=== PATIENT | female | born 1985 | race American Indian/Alaskan Native ===

== ENCOUNTER 2019-01-17 16:57 | Emergency (ER) | payer MEDICAID ==
[2019-01-17 17:04] VITALS: BP 137/98
--- NOTE | 2019-01-17 17:16 | Event Note ---
ED Screening Note Date of service: 01/17/19 Time: 17:14 ED Screening Note: 33 y o f presents with throat pain denies fever, chill,n.v This initial assessment/diagnostic orders/clinical plan/treatment(s) is/are subject to change based on patients health status, clinical progression and re-assessment by fellow clinical providers in the ED. Further treatment and workup at subsequent clinical providers discretion. Patient/guardian urged not to elope from the ED as their condition may be serious if not clinically assessed and managed. Initial orders include:
--- NOTE | 2019-01-17 19:27 | Emergency Department Report ---
ED General Adult HPI - General Chief complaint: Sore Throat Stated complaint: SORE THROAT Time Seen by Provider: 01/17/19 17:14 Source: patient Mode of arrival: Ambulatory Limitations: No Limitations - History of Present Illness Initial comments: The patient presents to the emergency department with a chief complaint of a sore throat 2 days and loss of voice. Patient also complains of returning [place] pain on the right side. Patient denies fever but does endorse contacts. Patient denies chest pain, shortness breath, or headache. -: Sudden Severity scale (0 -10): 5 Quality: aching Consistency: constant Improves with: none Worsens with: none Associated Symptoms: denies other symptoms Treatments Prior to Arrival: none - Related Data Previous Rx's Medication Instructions Recorded Last Taken Type Acetaminophen/Codeine [Tylenol 1 tab PO Q6H PRN #15 tab 01/17/19 Unknown Rx /Codeine # 3 tab] Naproxen [Naprosyn] 500 mg PO BID PRN #20 tablet 01/17/19 Unknown Rx Ondansetron [Zofran Odt] 4 mg PO Q4HR PRN #20 tab.rapdis 01/17/19 Unknown Rx cephALEXin [Keflex] 500 mg PO Q6HR #40 capsule 01/17/19 Unknown Rx predniSONE [Deltasone] 20 mg PO DAILY #15 tablet 01/17/19 Unknown Rx Allergies Allergy/AdvReac Type Severity Reaction Status Date / Time No Known Allergies Allergy Unverified 06/06/16 17:42 ED Review of Systems ROS: Stated complaint: SORE THROAT Other details as noted in HPI Comment: All other systems reviewed and negative Constitutional: denies: chills, fever Eyes: denies: eye pain, eye discharge, vision change ENT: denies: ear pain, throat pain Respiratory: denies: cough, shortness of breath, wheezing Cardiovascular: denies: chest pain, palpitations Endocrine: no symptoms reported Gastrointestinal: denies: abdominal pain, nausea, diarrhea Genitourinary: denies: urgency, dysuria, discharge Musculoskeletal: denies: back pain, joint swelling, arthralgia Skin: denies: rash, lesions Neurological: denies: headache, weakness, paresthesias Psychiatric: denies: anxiety, depression Hematological/Lymphatic: denies: easy bleeding, easy bruising ED Past Medical Hx - Past Medical History Hx Hypertension: No Hx Diabetes: No Hx Deep Vein Thrombosis: No Hx Renal Disease: No Hx Sickle Cell Disease: No Hx Seizures: No Hx Asthma: No Hx HIV: No - Social History Smoking Status: Never Smoker - Medications Home Medications: Home Medications Medication Instructions Recorded Confirmed Last Taken Type Acetaminophen/Codeine [Tylenol 1 tab PO Q6H PRN #15 tab 01/17/19 Unknown Rx /Codeine # 3 tab] Naproxen [Naprosyn] 500 mg PO BID PRN #20 tablet 01/17/19 Unknown Rx Ondansetron [Zofran Odt] 4 mg PO Q4HR PRN #20 tab.rapdis 01/17/19 Unknown Rx cephALEXin [Keflex] 500 mg PO Q6HR #40 capsule 01/17/19 Unknown Rx predniSONE [Deltasone] 20 mg PO DAILY #15 tablet 01/17/19 Unknown Rx ED Physical Exam - General Limitations: No Limitations General appearance: alert, in no apparent distress - Head Head exam: Present: atraumatic, normocephalic - Eye Eye exam: Present: normal appearance - ENT ENT exam: Present: mucous membranes moist, other (palatine tonsils inflamed with surrounding erythema and exudate) - Neck Neck exam: Present: normal inspection - Respiratory Respiratory exam: Present: normal lung sounds bilaterally. Absent: respiratory distress - Cardiovascular Cardiovascular Exam: Present: regular rate, normal rhythm. Absent: systolic murmur, diastolic murmur, rubs, gallop - GI/Abdominal GI/Abdominal exam: Present: soft, normal bowel sounds. Absent: distended, tenderness - Extremities Exam Extremities exam: Present: normal inspection - Back Exam Back exam: Present: normal inspection - Neurological Exam Neurological exam: Present: alert, oriented X3, CN II-XII intact. Absent: motor sensory deficit - Psychiatric Psychiatric exam: Present: normal affect, normal mood - Skin Skin exam: Present: warm, dry, intact, normal color. Absent: rash ED Course Vital Signs 01/17/19 17:02 Temperature 98.8 F Pulse Rate 98 H Respiratory 18 Rate Blood Pressure 137/98 [Left] O2 Sat by Pulse 100 Oximetry ED Medical Decision Making - Medical Decision Making Plan of care discussed with patient Critical care attestation.: If time is entered above; I have spent that time in minutes in the direct care of this critically ill patient, excluding procedure time. ED Disposition Clinical Impression: Pharyngitis, Sciatica Disposition: DC- TO HOME OR SELFCARE Is pt being admited?: No Does the pt Need Aspirin: No Condition: Stable Instructions: Pharyngitis (ED) Additional Instructions: return if worse Prescriptions: predniSONE [Deltasone] 20 mg PO DAILY #15 tablet cephALEXin [Keflex] 500 mg PO Q6HR #40 capsule Naproxen [Naprosyn] 500 mg PO BID PRN #20 tablet PRN Reason: pain Acetaminophen/Codeine [Tylenol /Codeine # 3 tab] 1 tab PO Q6H PRN #15 tab PRN Reason: pain Ondansetron [Zofran Odt] 4 mg PO Q4HR PRN #20 tab.rapdis PRN Reason: Nausea Referrals: [facility] [Provider Group] - 3-5 Days [facility] [Provider Group] - 3-5 Days Forms: Work/School Release Form(ED) Time of Disposition: 19:24
== END 2019-01-17 19:35 | disposition home or self-care (01) ==
LOC: ED 16:57
DX: J02.9 Acute pharyngitis, unspecified (principal); M54.31 Sciatica, right side; Z79.899 Other long term (current) drug therapy
CPT/HCPCS: 99282

== ENCOUNTER 2019-06-18 09:43 | Emergency (ER) | payer MEDICAID ==
[2019-06-18 11:44] LABS: Basophils % (Auto) 0.4 % (0.0-1.8); Eosinophils # (Auto) 0.1 K/mm3 (0.0-0.4); Hematocrit 37.5 % (30.3-42.9); Hemoglobin 12.3 gm/dl (10.1-14.3); Lymphocytes # (Auto) 2.3 K/mm3 (1.2-5.4); Lymphocytes % (Auto) 25.6 % (13.4-35.0); Mean Corpuscular HGB Conc 33 % (30-34); Mean Corpuscular Volume 80 fl (79-97); Monocytes # (Auto) 0.7 K/mm3 (0.0-0.8); Platelet Count 253 K/mm3 (140-440); Red Blood Count 4.68 M/mm3 (3.65-5.03); Red Cell Distribution Width 14.9 % (13.2-15.2)
[2019-06-18] MEDS ORDERED: SODIUM CHLORIDE 0.9% 1000 ML 1,000 ML IV ONE (11:44)
[2019-06-18] MEDS ORDERED: ONDANSETRON 4 MG/2 ML INJ IV ONE (11:44)
[2019-06-18 12:01] LABS: Alanine Aminotransferase 25 units/L (7-56); Albumin 4.1 g/dL (3.9-5); BUN/Creatinine Ratio 14; Blood Urea Nitrogen 10 mg/dL (7-17); Calcium 9.5 mg/dL (8.4-10.2); Hemolysis Index 5
--- NOTE | 2019-06-18 12:17 | Emergency Department Report ---
ED N/V/D HPI - General Chief complaint: Nausea/Vomiting/Diarrhea Stated complaint: COLD Time Seen by Provider: 06/18/19 10:30 Source: patient Mode of arrival: Ambulatory Limitations: No Limitations - History of Present Illness Initial comments: This is a 33-year-old female nontoxic, well nourished in appearance, no acute signs of distress presents to the ED with c/o of diarrhea, nausea and vomiting 3 days. Patient describes vomiting as food content. Patient denies any abdominal pain, chest pain, short of breath, fever, chills, headache, stiff ne ck, numbness or tingling. Patient denies any constipation. Denies any blood in stool. Patient denies any recent travels. Patient denies any drug allergies significant past medical history. MD complaint: nausea, vomiting, diarrhea -: days(s) Description of Vomiting: food contents Associated Abdominal Pain: No Radiation: none Pain Scale: 0 Improves with: none Worsens with: none Associated Symptoms: nausea/vomiting. denies: myalgias, chest pain, cough, diaphoresis, fever/chills, headaches, loss of appetite, malaise, rash, dysuria, shortness of breath, syncope, weakness - Related Data Previous Rx's Medication Instructions Recorded Last Taken Type Acetaminophen/Codeine [Tylenol 1 tab PO Q6H PRN #15 tab 01/17/19 Unknown Rx /Codeine # 3 tab] Naproxen [Naprosyn] 500 mg PO BID PRN #20 tablet 01/17/19 Unknown Rx Ondansetron [Zofran Odt] 4 mg PO Q4HR PRN #20 tab.rapdis 01/17/19 Unknown Rx cephALEXin [Keflex] 500 mg PO Q6HR #40 capsule 01/17/19 Unknown Rx predniSONE [Deltasone] 20 mg PO DAILY #15 tablet 01/17/19 Unknown Rx Ondansetron [Zofran Odt] 4 mg PO Q8HR PRN #12 tab.rapdis 06/18/19 Unknown Rx Allergies Allergy/AdvReac Type Severity Reaction Status Date / Time No Known Allergies Allergy Unverified 06/06/16 17:42 ED Review of Systems ROS: Stated complaint: COLD Other details as noted in HPI Constitutional: denies: chills, fever Eyes: denies: eye pain, eye discharge, vision change ENT: denies: ear pain, throat pain Respiratory: denies: cough, shortness of breath, wheezing Cardiovascular: denies: chest pain, palpitations Endocrine: no symptoms reported Gastrointestinal: nausea, vomiting, diarrhea. denies: abdominal pain, constipation, hematemesis, melena, hematochezia Genitourinary: denies: urgency, dysuria, discharge Musculoskeletal: denies: back pain, joint swelling, arthralgia Skin: denies: rash, lesions Neurological: denies: headache, weakness, paresthesias Psychiatric: denies: anxiety, depression Hematological/Lymphatic: denies: easy bleeding, easy bruising ED Past Medical Hx - Past Medical History Previous Medical History?: No Hx Hypertension: No Hx Diabetes: No Hx Deep Vein Thrombosis: No Hx Renal Disease: No Hx Sickle Cell Disease: No Hx Seizures: No Hx Asthma: No Hx HIV: No - Surgical History Past Surgical History?: No - Social History Smoking Status: Never Smoker Substance Use Type: None - Medications Home Medications: Home Medications Medication Instructions Recorded Confirmed Last Taken Type Acetaminophen/Codeine [Tylenol 1 tab PO Q6H PRN #15 tab 01/17/19 Unknown Rx /Codeine # 3 tab] Naproxen [Naprosyn] 500 mg PO BID PRN #20 tablet 01/17/19 Unknown Rx Ondansetron [Zofran Odt] 4 mg PO Q4HR PRN #20 tab.rapdis 01/17/19 Unknown Rx cephALEXin [Keflex] 500 mg PO Q6HR #40 capsule 01/17/19 Unknown Rx predniSONE [Deltasone] 20 mg PO DAILY #15 tablet 01/17/19 Unknown Rx Ondansetron [Zofran Odt] 4 mg PO Q8HR PRN #12 tab.rapdis 06/18/19 Unknown Rx ED Physical Exam - General Limitations: No Limitations General appearance: alert, in no apparent distress - Head Head exam: Present: atraumatic, normocephalic - Eye Eye exam: Present: normal appearance - Neck Neck exam: Present: normal inspection, full ROM. Absent: tenderness, meningismus, lymphadenopathy - Respiratory Respiratory exam: Present: normal lung sounds bilaterally. Absent: respiratory distress, wheezes, rales, rhonchi, stridor, chest wall tenderness, accessory muscle use, decreased breath sounds, prolonged expiratory - Cardiovascular Cardiovascular Exam: Present: regular rate, normal rhythm, normal heart sounds. Absent: bradycardia, tachycardia, irregular rhythm, systolic murmur, diastolic murmur, rubs, gallop - GI/Abdominal GI/Abdominal exam: Present: soft, normal bowel sounds. Absent: distended, tenderness, guarding, rebound, rigid, diminished bowel sounds - Extremities Exam Extremities exam: Present: normal inspection, full ROM - Back Exam Back exam: Present: normal inspection, full ROM. Absent: tenderness, CVA tenderness (R), CVA tenderness (L), muscle spasm, paraspinal tenderness, vertebral tenderness, rash noted - Neurological Exam Neurological exam: Present: alert, oriented X3, normal gait - Psychiatric Psychiatric exam: Present: normal affect, normal mood - Skin Skin exam: Present: warm, dry, intact, normal color. Absent: rash ED Course Vital Signs 06/18/19 06/18/19 09:48 12:27 Temperature 122.0 F H 98.0 F Pulse Rate 89 Respiratory 18 Rate Blood Pressure 129/85 O2 Sat by Pulse 100 Oximetry - Reevaluation(s) Reevaluation #1: 06/18/19 12:17 Patient is speaking in full sentences with no signs of distress noted. ED Medical Decision Making - Lab Data Result diagrams: 06/18/19 11:10 06/18/19 11:10 - Medical Decision Making This is a 33-year-old female that presents with nausea and vomiting. Patient is stable and was examined by me. There is no abdominal tenderness. Negative signs of symptoms of appendicitis, cholecystitis or acute abdomen. Labs obtained. UA obtained. Xr abdomen/chest xray obtained and dictated by the radiologist. Patient is notified of the report with no questions noted by the patient. Vital signs are stable prior to discharge. Patient received Zofran and 1L Normal saline in the ED which patient stated symptoms has resovled and subsided. A by mouth challenge has been obtained and patient tolerated well with no nausea vomiting. Patient was also instructed to Follow-up with a primary care doctor in 3-5 days or if symptoms worsen and continue return to emergency room as soon as possible. At time of discharge, the patient does not seem toxic or ill in appearance. No acute signs of distress noted. Patient agrees to discharge treatment plan of care. No further questions noted by the patient. Critical care attestation.: If time is entered above; I have spent that time in minutes in the direct care of this critically ill patient, excluding procedure time. ED Disposition Clinical Impression: Nausea vomiting and diarrhea Disposition: DC-01 TO HOME OR SELFCARE Is pt being admited?: No Does the pt Need Aspirin: No Condition: Stable Instructions: Acute Nausea and Vomiting (ED) Additional Instructions: Follow-up with a primary care doctor in 3-5 days or if symptoms worsen and continue return to emergency room as soon as possible. Prescriptions: Ondansetron [Zofran Odt] 4 mg PO Q8HR PRN #12 tab.rapdis PRN Reason: Nausea Referrals: PRIMARY CAREMD [Primary Care Provider] - 3-5 Days CECY FIORE MD [Staff Physician] - 3-5 Days [facility] [Outside] - 3-5 Days Forms: Work/School Release Form(ED)
[2019-06-18] MEDS ORDERED: ONDANSETRON 4 MG/2 ML INJ ONE (12:18)
[2019-06-18] MEDS ORDERED: SODIUM CHLORIDE 0.9% 1000 ML 1,000 ML ONE (12:19)
--- NOTE | 2019-06-18 13:55 | XRay Report ---
ABDOMEN 4 VIEW(S) INDICATION / CLINICAL INFORMATION: n/v. COMPARISON: None available. FINDINGS: TUBES / LINES: None. BOWEL GAS PATTERN: No significant abnormality. FREE AIR / EXTRALUMINAL GAS: None seen. ADDITIONAL FINDINGS: Clear lungs with normal heart size. IMPRESSION: 1. No significant abnormality. Signer Name: Pedro Rivera MD Signed: 06/18/2019 1:51 PM Workstation Name: [id number]
[2019-06-18 14:27] LABS: Bilirubin,Urine NEG (Negative); Blood,Urine LG (Negative); Color,Urine Yellow (Yellow); Mucus,Urine 1+ /HPF; Urobilinogen,Urine < 2.0 mg/dL (<2.0)
[2019-06-18 15:16] VITALS: BP 145/91
== END 2019-06-18 15:15 | disposition home or self-care (01) ==
LOC: ED 09:43
DX: R11.2 Nausea with vomiting, unspecified (principal); R19.7 Diarrhea, unspecified; J00 Acute nasopharyngitis [common cold]; Z79.899 Other long term (current) drug therapy
CPT/HCPCS: 36415; 74022; 80053; 81001; 83690; 84703; 85025; 87086; 96361; 96374; 99284; J2405; J7030

== ENCOUNTER 2019-07-22 02:00 | Emergency (ER) | payer MEDICAID ==
[2019-07-22] MEDS ORDERED: AMOXICILLIN/K CLAV 875/125MG TAB PO ONE (02:48)
[2019-07-22] MEDS ORDERED: dexAMETHasone 20 MG/5 ML VIAL IM ONE (02:48)
[2019-07-22] MEDS ORDERED: LIDOCAINE VISCOUS 2% 15 ML ORAL LIQD PO ONE (02:48)
[2019-07-22] MEDS ORDERED: KETOROLAC 30 MG/1 ML INJ IM ONE (02:48)
--- NOTE | 2019-07-22 03:17 | Emergency Department Report ---
ED General Adult HPI - General Chief complaint: Sore Throat Stated complaint: SORE THROAT Source: patient Mode of arrival: Ambulatory Limitations: No Limitations - History of Present Illness Initial comments: Patient is a 34-year-old -[place]yp[place] female with no past medical history who presents to the ED with complaint of acute onset persistent severe sore throat with dysphagia and right-sided anterior neck pain for the last 2 days. Patient states that swallowing any food makes the pain worse. Patient states that in the last 12 hours the swelling and the pain have worsened. Patient denies fever, chills, nausea, vomiting, diarrhea, dizziness, syncope, headache, nasal and sinus congestion, chest pain or shortness of breath, cough or abdominal pain. Patient states that she has been taking [id number] medication with no relief. Patient also states that there is no one else at home with similar symptoms. MD Complaint: Sore throat; neck pain -: Sudden, days(s) (2) Location: mouth Radiation: non-radiation Severity scale (0 -10): 6 Quality: aching, sharp Consistency: constant Improves with: none Worsens with: eating Associated Symptoms: denies other symptoms, loss of appetite. denies: confusion, chest pain, cough, diaphoresis, fever/chills, headaches, malaise, nausea/vomiting, rash, seizure, shortness of breath, syncope, other Treatments Prior to Arrival: none - Related Data Previous Rx's Medication Instructions Recorded Last Taken Type Acetaminophen/Codeine [Tylenol 1 tab PO Q6H PRN #15 tab 01/17/19 Unknown Rx /Codeine # 3 tab] Naproxen [Naprosyn] 500 mg PO BID PRN #20 tablet 01/17/19 Unknown Rx Ondansetron [Zofran Odt] 4 mg PO Q4HR PRN #20 tab.rapdis 01/17/19 Unknown Rx cephALEXin [Keflex] 500 mg PO Q6HR #40 capsule 01/17/19 Unknown Rx predniSONE [Deltasone] 20 mg PO DAILY #15 tablet 01/17/19 Unknown Rx Ondansetron [Zofran Odt] 4 mg PO Q8HR PRN #12 tab.rapdis 06/18/19 Unknown Rx Ibuprofen [Motrin] 600 mg PO Q8H PRN #30 tablet 07/22/19 Unknown Rx Lidocaine Viscous 2% 10 ml PO Q6H PRN #120 ml 07/22/19 Unknown Rx Penicillin V Potassium 500 mg PO Q6H #40 tablet 07/22/19 Unknown Rx Prednisone [predniSONE 10 mg 10 mg PO .TAPER #21 tab.ds.pk 07/22/19 Unknown Rx (6-Day Pack, 21 Tabs)] Allergies Allergy/AdvReac Type Severity Reaction Status Date / Time No Known Allergies Allergy Unverified 06/06/16 17:42 ED Review of Systems ROS: Stated complaint: SORE THROAT Other details as noted in HPI Constitutional: denies: chills, fever Eyes: denies: eye pain, eye discharge, vision change ENT: throat pain (right sided ), other (Swollen painful anterior cervical lymph nodes). denies: ear pain Respiratory: denies: cough, shortness of breath, wheezing Cardiovascular: denies: chest pain, palpitations Endocrine: no symptoms reported Gastrointestinal: denies: abdominal pain, nausea, diarrhea Genitourinary: denies: urgency, dysuria, discharge Musculoskeletal: denies: back pain, joint swelling, arthralgia Skin: denies: rash, lesions Neurological: denies: headache, weakness, paresthesias Psychiatric: denies: anxiety, depression Hematological/Lymphatic: denies: easy bleeding, easy bruising ED Past Medical Hx - Past Medical History Previous Medical History?: No Hx Hypertension: No Hx Diabetes: No Hx Deep Vein Thrombosis: No Hx Renal Disease: No Hx Sickle Cell Disease: No Hx Seizures: No Hx Asthma: No Hx HIV: No - Surgical History Past Surgical History?: No - Social History Smoking Status: Never Smoker Substance Use Type: None - Medications Home Medications: Home Medications Medication Instructions Recorded Confirmed Last Taken Type Acetaminophen/Codeine [Tylenol 1 tab PO Q6H PRN #15 tab 01/17/19 Unknown Rx /Codeine # 3 tab] Naproxen [Naprosyn] 500 mg PO BID PRN #20 tablet 01/17/19 Unknown Rx Ondansetron [Zofran Odt] 4 mg PO Q4HR PRN #20 tab.rapdis 01/17/19 Unknown Rx cephALEXin [Keflex] 500 mg PO Q6HR #40 capsule 01/17/19 Unknown Rx predniSONE [Deltasone] 20 mg PO DAILY #15 tablet 01/17/19 Unknown Rx Ondansetron [Zofran Odt] 4 mg PO Q8HR PRN #12 tab.rapdis 06/18/19 Unknown Rx Ibuprofen [Motrin] 600 mg PO Q8H PRN #30 tablet 07/22/19 Unknown Rx Lidocaine Viscous 2% 10 ml PO Q6H PRN #120 ml 07/22/19 Unknown Rx Penicillin V Potassium 500 mg PO Q6H #40 tablet 07/22/19 Unknown Rx Prednisone [predniSONE 10 mg 10 mg PO .TAPER #21 tab.ds.pk 07/22/19 Unknown Rx (6-Day Pack, 21 Tabs)] ED Physical Exam - General Limitations: No Limitations General appearance: alert, in no apparent distress - Head Head exam: Present: atraumatic, normocephalic, normal inspection - Eye Eye exam: Present: normal appearance, PERRL Pupils: Present: normal accommodation - ENT ENT exam: Present: mucous membranes moist, TM's normal bilaterally, normal external ear exam, other (Swollen erythematous right tonsils with exudates ) - Neck Neck exam: Present: normal inspection, full ROM, lymphadenopathy (anterior right sided) - Respiratory Respiratory exam: Present: normal lung sounds bilaterally. Absent: respiratory distress, wheezes, rales, rhonchi, stridor, chest wall tenderness, accessory muscle use, decreased breath sounds, prolonged expiratory - Cardiovascular Cardiovascular Exam: Present: normal rhythm, tachycardia, normal heart sounds. Absent: systolic murmur, diastolic murmur, rubs, gallop - GI/Abdominal GI/Abdominal exam: Present: soft, normal bowel sounds. Absent: tenderness, guarding, hyperactive bowel sounds, organomegaly - Extremities Exam Extremities exam: Present: normal inspection, full ROM, normal capillary refill - Back Exam Back exam: Present: normal inspection, full ROM. Absent: tenderness, CVA tenderness (R), muscle spasm, paraspinal tenderness - Neurological Exam Neurological exam: Present: alert, oriented X3, CN II-XII intact, normal gait, reflexes normal - Psychiatric Psychiatric exam: Present: normal affect, normal mood - Skin Skin exam: Present: warm, dry, intact, normal color. Absent: rash ED Course Vital Signs 07/22/19 07/22/19 02:03 02:58 Temperature 98.3 F Pulse Rate 102 H Respiratory 18 18 Rate Blood Pressure 166/97 O2 Sat by Pulse 100 Oximetry ED Medical Decision Making - Medical Decision Making This is a 34-year-old -[place]yp[place] female with no past medical history who presents to the ED with complaint of acute onset persistent severe sore throat with dysphagia and right-sided anterior neck pain for the last 2 days. Patient states that swallowing any food makes the pain worse. Patient states that in the last 12 hours the swelling and the pain have worsened. In the ED, patient is alert and oriented x3 and is not in distress but appears to be in significant pain. Patient is a febrile and slightly tachycardic in triage. Patient was treated for pain with steroid, pain medication and viscous lidocaine solution. On reevaluation, patient's pain is moderately controlled with medications and tachycardia resolved prior to being discharged home. Patient symptoms are likely due to acute bacterial tonsillitis or acute pharyngitis. Patient was discharged home on pain medications and antibiotics and advised to follow-up with her primary care physician in 7 to 10 days for reevaluation or return to the ED immediately if symptoms get worse. - Differential Diagnosis Strep pharyngitis; Tonsillitis; Viral pharyngitis; URI; Critical care attestation.: If time is entered above; I have spent that time in minutes in the direct care of this critically ill patient, excluding procedure time. ED Disposition Clinical Impression: Acute bacterial tonsillitis, Anterior cervical lymphadenopathy Acute pharyngitis Qualifiers: Pharyngitis/tonsillitis etiology: other specified organisms Qualified Code(s): J02.8 - Acute pharyngitis due to other specified organisms Disposition: DC-01 TO HOME OR SELFCARE Is pt being admited?: No Does the pt Need Aspirin: No Condition: Stable Instructions: Pharyngitis (ED), Tonsillitis (ED), Lymphadenopathy (ED) Additional Instructions: Take medication with food, drink plenty fluids and follow-up with your primary care physician in 7 to 10 days for reevaluation. Return to the ED immediately if symptoms get worse. Prescriptions: Lidocaine Viscous 2% 10 ml PO Q6H PRN #120 ml PRN Reason: Pain , Severe (7-10) Ibuprofen [Motrin] 600 mg PO Q8H PRN #30 tablet PRN Reason: Pain Penicillin V Potassium 500 mg PO Q6H #40 tablet Prednisone [predniSONE 10 mg (6-Day Pack, 21 Tabs)] 10 mg PO .TAPER #21 tab.ds.pk Referrals: [facility] [Provider Group] - 7-10 days Time of Disposition: 03:14 Print Language: [place] CITIZ[place]
[2019-07-22 03:42] VITALS: BP 149/102
== END 2019-07-22 03:30 | disposition home or self-care (01) ==
LOC: ED 02:00
DX: J03.90 Acute tonsillitis, unspecified (principal); R59.1 Generalized enlarged lymph nodes; A48.8 Other specified bacterial diseases
CPT/HCPCS: 96372; 99282; J1100; J1885

== ENCOUNTER 2020-05-16 13:18 | Emergency (ER) | payer OTHER, MEDICAID ==
[2020-05-16 13:26] VITALS: BP 153/99
--- NOTE | 2020-05-16 13:57 | Emergency Department Report ---
Chief Complaint: Sore Throat Stated Complaint: COUGH;SORE THROAT;RUNNY NOSE Time Seen by Provider: 05/16/20 13:46 - HPI History of Present Illness: 34-year-old -[place] female presents to the emergency room for 1 day history of sore throat, body aches runny nose. She denies any nausea no vomiting no diarrhea no abdominal pain no chest pain or shortness of breath. She states that her job told her she needed to see somebody before she returns back to work. Patient admits that she has a history of allergies but. Patient's primary care provider is at [facility]. Patient states she took a dose of NyQuil. Has not taken anything for pain. - Exam Vital Signs: Vital Signs 05/16/20 13:23 Temperature 98.9 F Pulse Rate 98 H Respiratory 20 Rate Blood Pressure 153/99 O2 Sat by Pulse 97 Oximetry Physical Exam: Gen: alert oriented NAD HEENT: Patent oral orifice, moist, nonerythematous nonedematous tonsils uvula is is midline no swelling appreciated no exudate. Cardic: regular rate and rhythm no murmurs appreciated Resp: Clear to auscultation bilateral no wheezing no rales or rhonchi. Abdomen: Soft nontender nondistended normal bowel sounds. MSE screening note: Focused history and physical exam performed. Due to findings the following was ordered: 34-year-old -[place] female presents to the emergency room for 1 day history of sore throat, body aches runny nose. She denies any nausea no vomiting no diarrhea no abdominal pain no chest pain or shortness of breath. She states that her job told her she needed to see somebody before she returns back to work. Patient admits that she has a history of allergies but. Patient's primary care provider is at [facility]. Patient states she took a dose of NyQuil. Has not taken anything for pain. Recommend Zyrtec Claritin or Viridiana. Try [id number] Flonase. Tylenol or ibuprofen for pain. Follow-up with your primary care provider. [place] [facility] [place] SCREENING [place]AM-LEFT Is pt being admited?: No Does the pt Need Aspirin: No Condition: Stable Additional Instructions: Recommend Zyrtec Claritin or Viridiana. Try [id number] Flonase. Tylenol or ibuprofen for pain. Follow-up with your primary care provider. Referrals: PRIMARY CARE, [Primary Care Provider] - 3-5 Days Forms: Work/School Release Form(ED)
== END 2020-05-16 14:00 | disposition left against medical advice (07) ==
LOC: ED 13:18
DX: J02.9 Acute pharyngitis, unspecified (principal); Z53.21 Procedure and treatment not carried out due to patient leaving prior to being seen by health care provider

== ENCOUNTER 2021-01-01 22:07 | Emergency (ER) | payer MEDICAID, OTHER ==
[2021-01-02 00:07] VITALS: BP 122/90
--- NOTE | 2021-01-02 01:15 | Emergency Department Report ---
ED General Adult HPI - General Chief complaint: Chest Pain Stated complaint: RIB SORE Time Seen by Provider: 01/02/21 01:07 Source: patient Mode of arrival: Ambulatory Limitations: No Limitations - History of Present Illness Initial comments: 35-year-old female patient with BMI > 50 presents to the emergency department with complaints of chest pain starting 3 days ago. Patient states the pain is constant, localized to the left side of her chest, no exacerbating or relieving factors identified. Pain is not reproducible with palpation. No history of similar symptoms. No recent fall, trauma, or injury. Patient also complains of left calf pain. Patient has a Nexplanon implant. Denies fever, chills, shortness of breath, palpitations, syncope, dizziness, nausea, vomiting. Denies all other complaints at this time. Severity scale (0 -10): 7 - Related Data Previous Rx's Medication Instructions Recorded Last Taken Type Acetaminophen/Codeine [Tylenol 1 tab PO Q6H PRN #15 tab 01/17/19 Unknown Rx /Codeine # 3 tab] Naproxen [Naprosyn] 500 mg PO BID PRN #20 tablet 01/17/19 Unknown Rx Ondansetron [Zofran Odt] 4 mg PO Q4HR PRN #20 tab.rapdis 01/17/19 Unknown Rx cephALEXin [Keflex] 500 mg PO Q6HR #40 capsule 01/17/19 Unknown Rx predniSONE [Deltasone] 20 mg PO DAILY #15 tablet 01/17/19 Unknown Rx Ondansetron [Zofran Odt] 4 mg PO Q8HR PRN #12 tab.rapdis 06/18/19 Unknown Rx Ibuprofen [Motrin] 600 mg PO Q8H PRN #30 tablet 07/22/19 Unknown Rx Lidocaine Viscous 2% 10 ml PO Q6H PRN #120 ml 07/22/19 Unknown Rx Penicillin V Potassium 500 mg PO Q6H #40 tablet 07/22/19 Unknown Rx Prednisone [predniSONE 10 mg 10 mg PO .TAPER #21 tab.ds.pk 07/22/19 Unknown Rx (6-Day Pack, 21 Tabs)] Allergies Allergy/AdvReac Type Severity Reaction Status Date / Time No Known Allergies Allergy Verified 05/16/20 13:20 ED Review of Systems ROS: Stated complaint: RIB SORE Other details as noted in HPI Other: GENERAL: Negative for fever, chills, weight change, anorexia, fatigue. ENT: Negative for ear pain, difficulty hearing, sore throat, nasal congestion, epistaxis. CARDIOVASCULAR: Positive for chest pain. PULMONARY: Negative for cough, dyspnea, wheezing, orthopnea, cyanosis. GASTROINTESTINAL: Negative for abdominal pain, nausea, vomiting, diarrhea, constipation. MUSCULOSKELETAL: Positive for left calf pain. NEUROLOGICAL: Negative for headache, seizure, syncope, paresthesias, weakness. INTEGUMENTARY: Negative for erythema, rash, diaphoresis, laceration, ecchymosis. HEMATOLOGICAL: Negative for hemoptysis, hematemesis, hematochezia, hematuria. PSYCHIATRIC: Negative for hallucinations, suicidal ideation, homicidal ideation, anxiety, depression. ED Past Medical Hx - Past Medical History Previous Medical History?: No Hx Hypertension: No Hx Diabetes: No Hx Deep Vein Thrombosis: No Hx Renal Disease: No Hx Sickle Cell Disease: No Hx Seizures: No Hx Asthma: No Hx HIV: No - Surgical History Past Surgical History?: No - Social History Smoking Status: Never Smoker Substance Use Type: None - Medications Home Medications: Home Medications Medication Instructions Recorded Confirmed Last Taken Type Acetaminophen/Codeine [Tylenol 1 tab PO Q6H PRN #15 tab 01/17/19 Unknown Rx /Codeine # 3 tab] Naproxen [Naprosyn] 500 mg PO BID PRN #20 tablet 01/17/19 Unknown Rx Ondansetron [Zofran Odt] 4 mg PO Q4HR PRN #20 tab.rapdis 01/17/19 Unknown Rx cephALEXin [Keflex] 500 mg PO Q6HR #40 capsule 01/17/19 Unknown Rx predniSONE [Deltasone] 20 mg PO DAILY #15 tablet 01/17/19 Unknown Rx Ondansetron [Zofran Odt] 4 mg PO Q8HR PRN #12 tab.rapdis 06/18/19 Unknown Rx Ibuprofen [Motrin] 600 mg PO Q8H PRN #30 tablet 07/22/19 Unknown Rx Lidocaine Viscous 2% 10 ml PO Q6H PRN #120 ml 07/22/19 Unknown Rx Penicillin V Potassium 500 mg PO Q6H #40 tablet 07/22/19 Unknown Rx Prednisone [predniSONE 10 mg 10 mg PO .TAPER #21 tab.ds.pk 07/22/19 Unknown Rx (6-Day Pack, 21 Tabs)] ED Physical Exam - General Limitations: No Limitations - Other Other exam information: General: Awake and alert. No acute distress. Head: Atraumatic, normocephalic. Eyes: EOMI. Pupils are equal and round. Normal sclera and conjunctiva. ENT: Oral mucosa is moist. Normal pharyngeal exam. Neck: Supple. No lymphadenopathy. Pulmonary: No respiratory distress. Clear to auscultation bilaterally. Cardiac: Patient reports left-sided chest pain without reproducible tenderness. Regular rate and rhythm. Pulses are palpable and equal bilaterally. No lower extremity cyanosis or edema. Skin: Warm and dry. No rashes. Abdomen: Soft, non-tender, non-protuberant. No guarding, rigidity, or rebound. Bowel sounds are normal. No organomegaly or masses noted. Back: Normal alignment. No CVA tenderness. Extremities: Symmetrical. Full range of motion intact. Patient reports left calf pain without reproducible tenderness. Neurological: Alert and oriented, appropriately interactive, no focal deficits. Psych: Cooperative. Appropriate mood and affect. Speech is evenly metered. Thoughts are logically construed. ED Course Vital Signs 01/02/21 00:06 Temperature 98.2 F Pulse Rate 86 Respiratory 16 Rate Blood Pressure 122/90 [Right] O2 Sat by Pulse 100 Oximetry ED Medical Decision Making - Lab Data Result diagrams: 01/02/21 01:15 01/02/21 01:15 - Medical Decision Making Differential diagnosis including but not limited to: acute coronary syndrome, pericarditis, pericardial effusion/cardiac tamponade, pleural effusion, pneumothorax, pulmonary embolism, pneumonia, deep vein thrombosis On reevaluation, patient remains stable. EKG without acute injury pattern. Chest x-ray is negative. D-dimer is elevated. Cannot clinically rule out pulmonary embolism using PERC criteria due to patient's exogenous hormone use. However, patient chose to leave AGAINST MEDICAL ADVICE prior to ultrasound of the left leg and CT angiogram of the chest. The patient chooses to leave AGAINST MEDICAL ADVICE. The patients ability to make an informed decision has been assessed and it has been determined that the patient has the capacity to comprehend the information about their current medical condition and appreciate the impact of the disease and the consequence of various options for treatment, including forgoing treatment. The patient possesses the ability to evaluate all treatment options, compare the risks and benefits of each option, communicate this choice in a consistent manner over time, and is able to make choices that are not irrational. The patient has been informed about the ideal further testing, treatments, and evaluations that may be indicated during the current emergency department visit as well as any possible alternatives that could be accomplished in a timely manner. The patient is aware of the possible risks of foregoing any or all of these interventions and the patient acknowledges that the decision to leave may result in undesirable consequences such as , permanent disability and/or loss of current lifestyle. Even through leaving AGAINST MEDICAL ADVICE is not ideal, the patient has been instructed to follow any discharge instructions given, take any medications prescribed, and resume care as soon as possible with another joan mcintosh. Additionally, it has been clearly stated that the patient is welcome to return at any time to continue care at this facility. Critical care attestation.: If time is entered above; I have spent that time in minutes in the direct care of this critically ill patient, excluding procedure time. ED Disposition Clinical Impression: Left against medical advice, Positive D dimer Disposition: 01 HOME / SELF CARE / HOMELESS Is pt being admited?: No Does the pt Need Aspirin: No Condition: Undetermined Additional Instructions: You have chosen to leave the emergency department AGAINST MEDICAL ADVICE. Return to the emergency department immediately for new or worsening symptoms. Referrals: CECY FIORE MD [Staff Physician] - 3-5 Days Forms: AMA Form Time of Disposition: 05:46
--- NOTE | 2021-01-02 01:33 | XRay Report ---
CHEST 2 VIEWS INDICATION / CLINICAL INFORMATION: chest pain. COMPARISON: 06/18/2019 FINDINGS: SUPPORT DEVICES: None. HEART / MEDIASTINUM: No significant abnormality. LUNGS / PLEURA: No significant pulmonary or pleural abnormality. No pneumothorax. ADDITIONAL FINDINGS: No significant additional findings. IMPRESSION: 1. No acute findings. Signer Name: Dago Doss MD Signed: 01/02/2021 1:29 AM Workstation Name: [id number]
[2021-01-02 01:39] LABS: Basophils # (Auto) 0.1 K/mm3 (0.0-0.1); Basophils % (Auto) 0.8 % (0.0-1.8); Eosinophils # (Auto) 0.2 K/mm3 (0.0-0.4); Eosinophils % (Auto) 1.5 % (0.0-4.3); Hemoglobin 11.8 gm/dl (10.1-14.3); Lymphocytes # (Auto) 2.9 K/mm3 (1.2-5.4); Lymphocytes % (Auto) 21.7 % (13.4-35.0); Mean Corpuscular HGB Conc 34 % (30-34); Mean Corpuscular Volume 82 fl (79-97); Monocytes # (Auto) 0.6 K/mm3 (0.0-0.8); Monocytes % (Auto) 4.7 % (0.0-7.3); Platelet Count 261 K/mm3 (140-440); Red Blood Count 4.28 M/mm3 (3.65-5.03); Red Cell Distribution Width 14.8 % (13.2-15.2)
[2021-01-02 01:55] LABS: Alanine Aminotransferase 13 units/L (7-56); Albumin 3.9 g/dL (3.9-5); Blood Urea Nitrogen 10 mg/dL (7-17); Hemolysis Index 13
[2021-01-02 01:57] LABS: BUN/Creatinine Ratio 14
== END 2021-01-02 07:56 | disposition left against medical advice (07) ==
LOC: ED 22:07
DX: R79.1 Abnormal coagulation profile (principal); Z53.21 Procedure and treatment not carried out due to patient leaving prior to being seen by health care provider
CPT/HCPCS: 36415; 71046; 80053; 83735; 84484; 85025; 85379; 99283; 99284

== ENCOUNTER 2021-09-07 08:37 | Emergency (ER) | payer SELFPAY ==
--- NOTE | 2021-09-07 11:07 | Emergency Department Report ---
ED Extremity Problem HPI - General Chief complaint: Extremity Problem,Nontraumatic Stated complaint: SWOLLEN FEET Time Seen by Provider: 09/07/21 10:57 Source: patient Mode of arrival: Ambulatory Limitations: No Limitations - History of Present Illness Initial comments: 36-year-old -[place] obese female presents to the ER today with complaints of bilateral lower extremity swelling. Onset a couple days ago. She denies any associated pain. She has had similar before with swelling to lower extremity and calf pain and she has had lower extremity ultrasounds, most recent was last year and they were negative. She denies hx DVT or PE. She denies any calf pain this time around. She reports no chest pain or shortness of breath. She denies any known history of any kidney disease. Patient blood pressure was noted to be elevated at triage, this was repeated when patient got into the room, It was still mildly elevated but improved. Patient states that she had just gestational hypertension, but once she gave peripheral blood pressure norm alized and she was taken off all medications. She states she does sit a lot for work but also at times does prolonged standing/walking. MD Complaint: extremity swelling -: Gradual, days(s) - Related Data Allergies Allergy/AdvReac Type Severity Reaction Status Date / Time No Known Allergies Allergy Verified 05/16/20 13:20 ED Review of Systems ROS: Stated complaint: SWOLLEN FEET Other details as noted in HPI Comment: All other systems reviewed and negative Respiratory: denies: cough, shortness of breath, wheezing Cardiovascular: edema. denies: chest pain, palpitations Musculoskeletal: joint swelling. denies: back pain, arthralgia, myalgia Skin: as per HPI. denies: change in hair/nails Neurological: denies: headache, weakness, numbness, paresthesias, confusion, abnormal gait, vertigo Psychiatric: denies: anxiety, depression, auditory hallucinations, visual hallucinations, homicidal thoughts, suicidal thoughts Hematological/Lymphatic: denies: easy bleeding, easy bruising ED Past Medical Hx - Past Medical History Previous Medical History?: No Hx Hypertension: No Hx Diabetes: No Hx Deep Vein Thrombosis: No Hx Renal Disease: No Hx Sickle Cell Disease: No Hx Seizures: No Hx Asthma: No Hx HIV: No - Surgical History Past Surgical History?: No - Social History Smoking Status: Never Smoker Substance Use Type: None ED Physical Exam - General Limitations: No Limitations General appearance: alert, obese - Respiratory Respiratory exam: Present: normal lung sounds bilaterally. Absent: respiratory distress, wheezes, rales, rhonchi - Cardiovascular Cardiovascular Exam: Present: regular rate, normal rhythm, normal heart sounds - Extremities Exam Extremities exam: Present: full ROM, normal capillary refill, pedal edema, other (Mild soft swelling noted to bilateral LE. No pitting. No calf ttp. Dorsalist pedis pulse normal. No erythema or bruising noted. ). Absent: tenderness, calf tenderness - Neurological Exam Neurological exam: Present: alert, oriented X3, CN II-XII intact, normal gait - Psychiatric Psychiatric exam: Present: normal affect, normal mood ED Course Vital Signs 09/07/21 09/07/21 09/07/21 09:32 11:13 12:25 Temperature 98 F Pulse Rate 86 82 82 Respiratory 16 16 Rate Blood Pressure 172/100 143/92 143/92 [Left] O2 Sat by Pulse 100 100 Oximetry ED Medical Decision Making - Lab Data Result diagrams: 09/07/21 11:21 - Medical Decision Making Patient has bilateral lower extremity swelling, swelling is nonpitting and she has no leg pain or calf pain. Her CMP is unremarkable. Repeat blood pressure showed improvement but still slightly elevated. Well score for DVT 0. She has no skin discoloration. She has no chest pain or shortness of breath. Dorsalis pedis pulses normal and equal bilaterally. Her gait is normal. Patient is obese which could be contributing to her lower extremity swelling but I did discuss it could be dependent edema/venous insufficiency. Recommend that she elevates her leg as often as possible and try to avoid too much salt in the food and increase her water intake. Patient was requesting prescription for water pills but informed that at this time this would be best left to the PCP to decide whether she needs water pills. Patient expressed understanding and agree with plan. Patient was stable at time of discharge. Critical care attestation.: If time is entered above; I have spent that time in minutes in the direct care of this critically ill patient, excluding procedure time. ED Disposition Clinical Impression: Swelling of lower extremity, Elevated blood pressure reading Disposition: HOME / SELF CARE / HOMELESS Is pt being admited?: No Does the pt Need Aspirin: No Condition: Stable Instructions: Preventing Hypertension, Peripheral Edema Additional Instructions: I recommend elevating legs as often as possible. I do recommend decrease salt intake and continue monitoring your blood pressure at home. Write the readings down and follow up with PCP. Return to ED if worse. Referrals: CECY FIORE MD [Staff Physician] - 3-5 Days Forms: Work/School Release Form(ED) Time of Disposition: 12:17
[2021-09-07 11:14] VITALS: BP 143/92
[2021-09-07 11:56] LABS: Alanine Aminotransferase 23 units/L (7-56); Albumin 3.9 g/dL (3.9-5); Blood Urea Nitrogen 10 mg/dL (7-17); Calcium 9.1 mg/dL (8.4-10.2); Hemolysis Index 0
[2021-09-07 11:57] LABS: BUN/Creatinine Ratio 17
== END 2021-09-07 12:25 | disposition home or self-care (01) ==
LOC: ED 08:37
DX: M79.89 Other specified soft tissue disorders (principal); I10 Essential (primary) hypertension
CPT/HCPCS: 36415; 80053; 99283